=== PATIENT | male | born 2005 | race Caucasian/White ===

== ENCOUNTER 2025-02-08 21:22 | Emergency (ER) | payer MEDICAID ==
[~2025-02-08] VITALS: Ht 167.6 cm; Wt 54.4 kg
[2025-02-09 00:45] VITALS: BP 121/74; TEMP 98.4; O2SAT 98
== END 2025-02-09 00:45 | disposition home or self-care (01) ==
LOC: ER 21:24
DX: S09.90XA Unspecified injury of head, initial encounter (principal); Z60.2 Problems related to living alone; W50.0XXA Accidental hit or strike by another person, initial encounter; Y93.89 Activity, other specified; Y92.89 Other specified places as the place of occurrence of the external cause; Y99.8 Other external cause status
CPT/HCPCS: 70450-TC